=== PATIENT | female | born 1965 | race Caucasian/White ===

== ENCOUNTER 2025-01-06 22:15 | Emergency (ER) | payer OTHER, SELFPAY ==
--- NOTE | ~2025-01-06 | CT_ITS ---
CLINICAL HISTORY: LUE numbness weakness since yesterday Exam: 1. CT Head without contrast. 2. CT angiography head and neck with contrast. MIP postprocessing. Comparison: None provided Findings: HEAD CT: The size and shape of the ventricular system is within normal limits for this patient's age. Minimal to mild areas of low-attenuation are seen within the periventricular and deep white matter. Toney-white differentiation is well preserved. No midline shift or mass effect. No intracranial hemorrhage. No calvarial fractures HEAD AND NECK CTA: Aortic arch and cervical great vessels are patent. Codominant vertebral arteries. Intracranial arteries are patent. No aneurysm, dissection, or occlusion. origins of the right posterior cerebral artery. No abnormal intracranial enhancement. There is a 2 cm hypodense nodule within the right lobe of the thyroid gland. Upper airway is patent. Lung apices are clear. No pathologically enlarged lymph nodes. No focal bony lesions. IMPRESSION: CT head: No hemorrhage or acute territorial infarct. CT angiogram head and neck: No large vessel occlusion hemodynamically significant stenosis identified. 2 cm hypodense right thyroid nodule. Nonemergent thyroid ultrasound suggested for further evaluation. This document has been electronically signed by: Yan Patel MD on 01/07/2025 00:21:32
[2025-01-06 22:19] VITALS: BP 176/77; PULSE 64; RESP 16; TEMP 36.2; O2SAT 97; BMI 19.8
--- NOTE | 2025-01-06 22:28 | ECG_ITS ---
Test Reason : CP Blood Pressure : */* mmHG Vent. Rate : 61 BPM Atrial Rate : 61 BPM P-R Int : 146 ms QRS Dur : 90 ms QT Int : 442 ms P-R-T Axes : 54 60 80 degrees QTcB Int : 444 ms Normal sinus rhythm Normal ECG No previous ECGs available Referred By: Generic ED Physician Electronically Signed By: JOSIE HESS
[2025-01-06 23:09] LABS: MANUAL DIFF FLAG NO
[2025-01-06 23:10] VITALS: BP 166/66; PULSE 63; RESP 13; TEMP 36.8; O2SAT 98
[2025-01-06 23:10] LABS: Hematocrit 35.5 % (37.0-47.0); Hemoglobin 12.2 g/dl (12.0-16.0); Imm Gran Abs Auto 0.02 X10*3/uL (0.00-0.03); Imm Gran Pct Auto 0.3 % (0.0-0.4); Lymphocytes Absolute Auto 3.3 X10*3/uL (1.2-4.9); Mean Corpuscular HGB Conc 34.4 g/dl (31.0-35.0); Mean Corpuscular Hemoglobin 27.0 pg (27.0-33.0); Mean Corpuscular Volume 78.5 fL (80.0-98.0); NRBC Abs Auto 0.000 X10*3/uL (0.0-0.012); NRBC Pct Auto 0.0 /100WBC (0.0-0.2); Platelet Count 214 X10*3/uL (160-400); Red Blood Count 4.52 X10*6/uL (4.20-5.50); White Blood Count 6.3 X10*3/uL (4.8-10.8)
[2025-01-06 23:17] LABS: INTERNATIONAL NORM RATIO 0.9 (0.9-1.1); Prothrombin Time 10.4 SEC (10.9-12.4)
--- NOTE | 2025-01-06 23:26 | ED_ITS ---
HPI - Neuro Symptoms/Deficit General Chief Complaint: Neuro Symptoms/Deficit Stated Complaint: left arm numbness Time Seen by Provider: 01/06/25 22:48 Source: patient, family and certified court/medical interpreter (Family as requested by the patient) Mode of arrival: ambulatory History of Present Illness ED Provider: Armando ROBERSON Narrative: 59-year-old female, who has significant past medical history for diabetes/hypertension/CAD, had cardiac surgery March of 2024, she is currently visiting and states that yesterday she experienced an episode of dizziness with shortness of breath and states that this resolved but then reports that this morning she began experiencing left upper extremity numbness from the elbow down involving the entire distal extremity as well as some numbness at the posterior left shoulder but no difficulty with the proximal left upper extremity in terms of numbness/tingling/weakness. She reports intermittent shortness of breath but otherwise denies any constitutional symptoms such as fever, chills, nausea, vomiting, abdominal pain, sore throat/cough. Related Data Allergies Allergy/AdvReac Type Severity Reaction Status Date / Time No Known Allergies Allergy Verified 01/06/25 22:19 Review of Systems 2 Review of Systems: Pertinent positives and negatives as stated in the HPI PMFSH Past Medical History Source: nursing notes reviewed Social History Social History Smoked in Last 30 Days: No Use of substances other than those prescribed or required for medical reasons: No Advance Directives: No Advance Directives Information Provided: No Patient : No Physical Exam 2 Exam: Exam: VITAL SIGNS: Reviewed. GENERAL: Well developed, well nourished, in no acute distress. HEAD: Normocephalic/atraumatic EYES: PERRLA, EOMI EARS: Ext canals without abnormality NOSE: Nares patent bilateral OROPHARYNX: no oral lesions noted, posterior pharynx clear NECK: Supple, no adenopathy LUNGS: Normal breath sounds. No adventitious sounds or accessory muscle use. SpO2<97> CARDIOVASCULAR: Regular rate and rhythm without noted murmurs, no JVD or lower extremity edema. ABDOMEN: Soft, non-tender, non-distended with bowel sounds. MUSCULOSKELETAL: No tenderness, deformities, or effusions noted on gross inspection. EXTREMITIES: No cyanosis, clubbing or edema. SKIN: Inspection of the skin reveals no rashes NEUROLOGIC: Alert and oriented x 4. Strength grossly intact x 4, no facial asymmetry, no pronator drift, cranial nerves 2-12 are grossly intact. Vital Signs: Vital Signs: Last Vital Signs Temp 98.1 F 01/07/25 00:00 Pulse 68 01/07/25 00:56 Resp 12 01/07/25 00:56 BP 141/65 H 01/07/25 00:56 Pulse Ox 99 01/07/25 00:56 O2 Del Method Room Air 01/07/25 00:56 BMI result Body Mass Index 19.8 Medications Administered Discontinued Medications Generic Name Dose Route Start Last Admin Trade Name Freq PRN Reason Stop Dose Admin Iohexol 75 ml 01/06/25 23:35 01/06/25 23:44 Iohexol 350 Mg/Ml 100 Ml Infus..Btl IV 01/06/25 23:36 75 ml ONCE ONE Administration Medical Decision Making Medical Decision Making MDM Narrative: 59-year-old female with history and clinical presentation, DX: This is not consistent with a radicular distribution, with the ?sock/glove numbness? suspect diabetes, will rule out subacute stroke as patient has continued numbness of the left upper extremity but no other abnormalities. My interpretation of the EKG: Normal sinus rhythm, HR 61, no STEMI, CA/QRS/QTC within normal limits. 2335: I was informed by nursing that patient's glucose is over 400 2342: I reviewed and interpreted all investigations there is no leukocytosis, anemia or thrombocytopenia. Coagulation studies are within normal limits. Chemistries and bile testing is pending. So are the imaging studies. 0107: I reviewed and interpreted chemistry results and there is no MARCO/electrolyte or liver enzyme derangements, there is hyperglycemia without evidence of DKA or HHS. My interpretation is in agreement with radiology's impression of the noncontrast head CT/CT angio of the head and neck in that there are no acute findings. Patient continues to appear well and nontoxic and I discussed all results and findings with the patient and her son at bedside, I explained that this distribution of numbness can be consistent with underlying poorly controlled diabetes, I highly encouraged more aggressive glucose control and also recommended that she should be further evaluated by Neurology in case there are alternative etiologies though I do not suspect MS or other inflammatory condition. Differential Diagnosis Differential Diagnoses: The differential diagnosis associated with the presentation includes See above Admission/Observation Consideration of admission/observation: Escalation of care including admission/observation considered See above Consult Healthcare Provider Management of the patient was discussed with: Hospitalist See above Lab Data MDM Lab Attestation statement: I reviewed the patient's lab results. See above 01/06/25 23:03 01/06/25 23:03 Labs: Lab Results 01/06/25 01/06/25 Range/Units 23:03 23:20 WBC 6.3 (4.8-10.8) X10*3/uL RBC 4.52 (4.20-5.50) X10*6/uL Hgb 12.2 (12.0-16.0) g/dl Hct 35.5 L (37.0-47.0) % MCV 78.5 L (80.0-98.0) fL MCH 27.0 (27.0-33.0) pg MCHC 34.4 (31.0-35.0) g/dl RDW 13.0 (11.0-16.0) % Plt Count 214 (160-400) X10*3/uL MPV 12.9 H (9.4-12.3) fL Immature Gran % (Auto) 0.3 (0.0-0.4) % Neut % (Auto) 38.5 L (45-73) % Lymph % (Auto) 52.0 H (20-40) % [place] % (Auto) 7.0 (2-11) % Eos % (Auto) 1.6 (0-4) % Baso % (Auto) 0.6 (0-2) % Lymph # (Auto) 3.3 (1.2-4.9) X10*3/uL [place] # (Auto) 0.4 (0.1-1.2) X10*3/uL Eos # (Auto) 0.1 (0.0-0.4) X10*3/uL Baso # (Auto) 0.0 (0.0-0.2) X10*3/uL Abs Immat Gran (auto) 0.02 (0.00-0.03) X10*3/uL Absolute Neuts (auto) 2.4 (2.0-8.3) x10*3/uL Absolute Nucleated RBC 0.000 (0.0-0.012) X10*3/uL Nucleated RBC % (auto) 0.0 (0.0-0.2) /100WBC PT 10.4 L (10.9-12.4) SEC INR 0.9 (0.9-1.1) Sodium 137 (135-145) mmol/L Potassium 4.0 (3.3-5.1) mmol/L Chloride 100 (96-108) mmol/L Carbon Dioxide 29 (22-29) mmol/L Anion Gap 12 (12-20) BUN 13 (9-16) mg/dL Creatinine 0.72 (0.5-1.4) mg/dL Estim Creat Clear Calc 70.7 Estimated GFR > 60 Random Glucose 498 H* (60-115) mg/dL Calcium 9.8 (8.4-10.2) mg/dL Magnesium 2.0 (1.6-2.6) mg/dL Total Bilirubin 0.2 (0.0-1.0) mg/dL AST 18 (5-31) U/L ALT 20 (0-31) U/L Alkaline Phosphatase 82 (39-117) U/L Troponin I High Sens < 2.7 (<3.5-17.0) ng/L Total Protein 7.7 (6.5-8.0) g/dL Albumin 4.5 (3.5-5.0) g/dL Influenza Type A (PCR) NEGATIVE (Negative) Influenza Type B (PCR) NEGATIVE (Negative) RSV RNA Qual (PCR) NEGATIVE (Negative) SARS-CoV-2 RNA (RT-PCR) NEGATIVE (Negative) Independent Interpretation I performed an independent interpretation of an: EKG and CT Scan Interpretation: See above Radiology Impression Discussion of test interpretation with radiology: I have reviewed the radiologist's reading. Radiologist Impression: See above Chronic Conditions Patient?s care impacted by: Diabetes and Hypertension Discharge Plan Discharge Clinical Impression: Diabetic neuropathy Patient Disposition: Home, Self-Care Instructions: Diabetic Neuropathy (ED) Additional Instructions: Resume all home medications as prescribed. Recommend more caution with your glucose control.. Follow-up with your primary care doctor and discuss the possibility of an neurology consultation. Please do not hesitate to return to the emergency room if you have any worsening or additional symptoms. Print Language: Slovak
[2025-01-06 23:37] LABS: Alanine Aminotransferase 20 U/L (0-31); Albumin Level 4.5 g/dL (3.5-5.0); Alkaline Phosphatase 82 U/L (39-117); Anion Gap 12 (12-20); Aspartate Amino Transferase 18 U/L (5-31); Blood Urea Nitrogen 13 mg/dL (9-16); Calcium 9.8 mg/dL (8.4-10.2); Carbon Dioxide 29 mmol/L (22-29); Chloride 100 mmol/L (96-108); Creatinine Clr Calc Pharmacy 70.7; Estimated Glomerular Filt Rate > 60; Magnesium 2.0 mg/dL (1.6-2.6); Potassium 4.0 mmol/L (3.3-5.1); Sodium 137 mmol/L (135-145); Total Protein 7.7 g/dL (6.5-8.0)
[2025-01-06 23:42] LABS: Troponin-I High Sensitivity < 2.7 ng/L (<3.5-17.0)
[2025-01-06] MEDS: iohexoL 350 MG/ML 100 ML INFUS..BTL 75 ML IV (23:44)
[2025-01-07] VITALS: BP 158/55; PULSE 65; RESP 13; TEMP 36.7; O2SAT 97
[2025-01-07 00:02] LABS: Resp Syncy Virus RNA Qual PCR NEGATIVE (Negative); SARS COV2 PCR INHOUSE NEGATIVE (Negative)
[2025-01-07 00:56] VITALS: BP 141/65; PULSE 68; RESP 12; O2SAT 99
[2025-01-07 01:19] VITALS: BP 141/68; PULSE 74; RESP 15; TEMP 36.7; O2SAT 100
== END 2025-01-07 01:21 | disposition home or self-care (01) ==
PROVIDERS: Emergency Provider Student in an Organized Health Care Education/Training Program
DX: E11.40 Type 2 diabetes mellitus with diabetic neuropathy, unspecified (principal); R20.0 Anesthesia of skin; R06.02 Shortness of breath; I10 Essential (primary) hypertension; E11.8 Type 2 diabetes mellitus with unspecified complications; I25.10 Atherosclerotic heart disease of native coronary artery without angina pectoris; Z03.818 Encounter for observation for suspected exposure to other biological agents ruled out
CPT/HCPCS: 36415; 70496; 70498; 80053; 83735; 84484; 85025; 85610; 87637; 93005; 99285; Q9967

== ENCOUNTER → 2025-01-06 22:28 | Outpatient (BNV) | payer OTHER, SELFPAY | PROVIDERS: Emergency Provider Student in an Organized Health Care Education/Training Program; Visit Provider Internal Medicine | DX: I10 Essential (primary) hypertension (principal); Z86.74 Personal history of sudden cardiac arrest | CPT/HCPCS: 93010 ==

== ENCOUNTER → 2025-01-06 23:04 | Outpatient (BNV) | payer OTHER, SELFPAY | PROVIDERS: Emergency Provider Student in an Organized Health Care Education/Training Program; Visit Provider Radiology Diagnostic Radiology | DX: R20.2 Paresthesia of skin (principal) | CPT/HCPCS: 70496; 70498 ==